=== PATIENT | male | born 1995 | race Caucasian/White ===

== ENCOUNTER 2016-10-07 20:01 | Emergency (ER) ==
--- NOTE | 2016-10-07 21:19 | PROVIDER DOCUMENTATION ---
HPI-Cardiac General <Jerrica Zuluaga - Last Filed: 10/07/16 22:20> - General Source: patient - History of Present Illness-Cardiac Location: reports: central, shoulder Quality of Pain: reports: pressure, tightness Severity in ED: mild Onset/Duration: 2 days ago Timing: still present, intermittent Context/Activities at Onset: reports: none Modifying Factors: improves with: analgesics Palpitation Quality: N/A History of arrythmia: reports: none Recent use of:: reports: no stimulants Nitro Today/Relief: reports: no nitro taken today Aspirin Treatment Today: reports: no aspirin today Prior Chest Pain/Cardiac Workup: reports: no prior chest pain, no prior cardiac workup, non-cardiac Associated Symptoms: reports: denies symptoms Similar Symptoms Previously?: No Recently Seen Here or By Another Healthcare Provider: No <Pawan Resendez - Last Filed: 10/08/16 02:07> - General Chief Complaint: General Adult Stated Complaint: CHEST PAIN,SOB,LFT ARM NUMBNESS Time Seen by Provider: 10/07/16 21:10 Allergies/Adverse Reactions: Patient Allergies Allergy/AdvReac Type Severity Reaction Status Date / Time No Known Allergies Allergy Verified 10/07/16 20:10 Home Medications: Home Medication List Medication Instructions Recorded Confirmed Last Taken Type Ketorolac [Toradol] 10 mg PO Q8H PRN PRN #14 tablet 10/07/16 Unknown Rx Methylprednisolone [Medrol Dosepak] 4 mg PO DIRECTED #1 package 10/07/16 Unknown Rx Tizanidine HCl [Zanaflex] 4 mg PO DAILY 10/07/16 10/07/16 Unknown History - History of Present Illness-Cardiac Nature of Presenting Problem: 21 yom c/o intermittent chest pain that radiates to his left arm and neck that started yesterday. Pt also has some left arm numbness that has been going on for about 2 months off and on. (Pawan Resendez) Review of Systems - Adult - REVIEW OF SYSTEMS - ADULT Constitutional: reports: see HPI. denies: no symptoms reported, chills, fever, fatique, night sweats, weight gain, weight loss, other Eyes: reports: no symptoms reported. denies: see HPI, discharge, dry eyes, decreased vision, blurred vision, double vision, eye pain, redness, other Ears, Nose, Mouth & Throat: reports: no symptoms reported. denies: see HPI, ear discharge, ear pain, hearing loss, tinnitus, epistaxis, sinus problem, nose pain, loose teeth, mouth/dental pain, mouth swelling, hoarseness, throat pain, throat swelling, other Cardiovascular: reports: see HPI, chest pain Respiratory: reports: no symptoms reported. denies: see HPI, chronic cough, cough, dyspnea on exertion, excessive sputum production, hemoptysis, pleurisy, shortness of breath, wheezing, other Gastrointestinal: reports: no symptoms reported. denies: see HPI, abdominal pain, hematemesis, constipation, diarrhea, difficulty swallowing, frequent heartburn, nausea, poor appetite, rectal bleeding, vomiting, other Genitourinary: reports: no symptoms reported. denies: see HPI, dysuria, discharge, frequency, flank pain, frequent UTI's, hematuria, hesitency, incontinence, urinary retention, urgency, other Musculoskeletal: reports: no symptoms reported. denies: see HPI, bone pain, back pain, frequent leg cramps, joint pain, joint swelling, muscle aches, muscle weakness, neck pain, other Integumentary: reports: no symptoms reported. denies: see HPI, hives, hair loss , itching, mole changes, nail changes, rash, skin sores/ulcer, skin thickening, other Neurological: reports: see HPI, numbness (left arm) Psychiatric: reports: anxiety, alcohol/drug dependence. denies: see HPI All Other Systems: Reviewed and Negative <Pawan Resendez - Last Filed: 10/08/16 02:07> Past History - Adult - PAST MEDICAL HISTORY-ADULT Review of Records: reports: Old Records Reviewed, Nursing Assessment Review, Medications Reviewed, Social history reviewed & non-contributory. <Pawan Resendez - Last Filed: 10/08/16 02:07> Physical Exam-General - PHYSICAL EXAM-ADULT Initial Vital Signs Reviewed: Yes - CONSTITUTIONAL General Appearance: appears well, alert, no apparent distress. negative: mild distress, moderate distress, severe distress, cachetic, obese, thin, anxious, lethargic, slow to respond, obtunded, combative, other - EYES Eyes: PERRL/EOMI, pink conjunctivae. negative: fundi clear, no AV nicking, anisocoria, conjuctival exudate, EOM palsy, meningismus, pale conjunctivae, photophobia, sclera injected, scleral icterus, subconjunctival hemorrhage, sunken eyes, other - HEAD, EARS, NOSE, MOUTH & THROAT HENMT: normocephalic/atraumatic, moist mucous membranes, normal ENT inspection, TMs normal, pharynx normal. negative: angioedema, dental decay, hearing deficit , pharyngeal erythema, tonsillar exudate, TM abnormal, TM obscurred by cerumen, frontal tenderness, maxillary tenderness, other - NECK Neck: non-tender, full range of motion, supple, normal inspection. negative: Brudzinski's sign, carotid bruit, C-spine tenderness, limited range of motion, lymphadenopathy, meningismus, trachial deviation, tender lateral, tender midline , thyromegaly, other - RESPIRATORY Respiratory: chest non-tender, lungs clear, normal breath sounds, no pleuratic chest pain, no respiratory distress, no accessory muscle use. negative: respiratory distress, decreased breath sounds, accessory muscle use, crackles, rales, rhonchi, stridor, wheezing, dull on percussion, prolonged expiration, pain on inspiration, plerual rub, retractions, splinting, decreased rate, increased rate, crepitus, other - CARDIOVASCULAR Cardiovascular: normal peripheral pulses, regular rate, rhythm, no edema, no gallop, no JVD, no murmur. negative: JVD, bradycardia, tachycardia, diastolic murmur, systolic murmur, gallop/S3, gallop/S4, extra beats, friction rub, irregularly irregular, PMI displaced laterally, other - CHEST (BREASTS) Chest/Breast: tenderness (very mild tenderness to left chest wall) - GASTROINTESTINAL (ABDOMEN) Abdominal Exam: normal bowel sounds, non tender, soft, no organomegaly, no pulsatile mass. negative: abdominal bruit, abnormal bowel sounds, distended, guarding, rigid, rebound, tenderness, hernia, mass, hepatomegaly, spleenomegaly , McBurney's point tenderness, Becerra's sign, obturator sign, prominent aortic pulsations, psoas, Rovsing's sign, other - GENITOURINARY Male Genitalia: deferred - LYMPHATIC Lymphatic: no adenopathy. negative: axilla node tender, cervical node tenderness, inguinal node tender, enlargement, striations, streaking, other - MUSCULOSKELETAL Back Exam: normal inspection, no CVA tenderness, no vertebral tenderness. negative: CVA tenderness, decreased range of motion, ecchymosis, kyphosis, lordosis, muscle spasm, scoliosis, swelling, vertebral tenderness, other Extremity: normal range of motion, non-tender, normal gait, normal inspection, no pedal edema, no calf tenderness, normal capillary refill. negative: pelvis stable, abnormal NV exam, calf tenderness, deformity, erythema, inflammation, joint effusion, pulse deficit, pedal edema, slow capillary refill, swelling, tenderness, other - SKIN Integumentary: normal color, normal turgor, warm/dry. negative: abrasion(s), blanching, cyanosis, diaphoresis, decubitus, dependent lividity, ecchymosis, embolic lesions, erythema, signs of IVDA, jaundice, laceration(s), mottled, pallor, petechiae, purpura, rash, swelling, tenderness, warm, zoster-like rash, other - NEUROLOGIC Neurologic: grossly normal - PSYCHIATRIC Psych/Mental Status: oriented x 3 <Pawan Resendez - Last Filed: 10/08/16 02:07> Progress - EKG 1 Time of EKG reading by physician:: 21:20 EKG Read and Signed by:: Denton Garcia EKG Interpretation (*Must complete 3 of following elements*): Normal Rate: 64 Rhythm: NSR [place]: normal <Jerrica Zuluaga - Last Filed: 10/07/16 22:20> - XRAY 1 XRAY Study: Chest Impression: Normal (per radiologist) <Pawan Resendez - Last Filed: 10/08/16 02:07> - PLAN OF CARE/RESULTS Progress/Plan/Lab Results: Laboratory Tests 10/07/16 10/07/16 10/07/16 21:22 21:22 21:22 WBC 5.54 RBC 5.07 Hgb 14.9 Hct 42.4 MCV 83.6 MCH 29.4 MCHC 35.1 RDW Std Deviation 11.8 Plt Count 203 MPV 9.7 Immature Gran % (Auto) 0.2 Neut % (Auto) 62.9 Lymph % (Auto) 27.8 [place] % (Auto) 7.2 Eos % (Auto) 1.4 Baso % (Auto) 0.5 Immature Gran # (Auto) 0.01 Neut # (Auto) 3.48 Lymph # (Auto) 1.54 [place] # (Auto) 0.40 Eos # (Auto) 0.08 Baso # (Auto) 0.03 Sodium 136 Potassium 4.1 Chloride 101 Carbon Dioxide 27 Anion Gap 9 BUN 16 Creatinine 0.8 Estimated GFR/1.73 m2 > 60 BUN/Creatinine Ratio 20 Glucose 87 Calculated Osmolality 273 Calcium 9.1 Total Bilirubin 0.50 AST 19 ALT 19 Alkaline Phosphatase 62 Troponin T < 0.010 Total Protein 6.5 Albumin 4.7 Globulin 2.0 Albumin/Globulin Ratio 3.0 Orders Category Date Time Status CHEST-2 VIEWS [RAD] Stat Exams 10/07/16 21:13 Taken CBC WITH ELECTRONIC DIFF [HEME] Stat Lab 10/07/16 21:22 Completed CMP [COMPREHENSIVE METABOLIC PANEL] [CHEM] Stat Lab 10/07/16 21:22 Completed TROPONIN T Stat Lab 10/07/16 21:22 Completed EKG [EKG] Stat Ther 10/07/16 21:13 Draft Vital Signs Temp Pulse Resp BP Pulse Ox 10/07/16 22:30 98.2 F 62 20 91/73 98 10/07/16 21:45 65 20 119/68 97 10/07/16 20:05 98 F 78 18 134/77 100 No Known Allergies Allergy (Verified 10/07/16 20:10) Ketorolac [Toradol] 10 mg PO Q8H PRN PRN #14 tablet 10/07/16 Methylprednisolone [Medrol Dosepak] 4 mg PO DIRECTED #1 package 10/07/16 Tizanidine HCl [Zanaflex] 4 mg PO DAILY 10/07/16 Laboratory 10/07/16 10/07/16 10/07/16 21:22 21:22 21:22 WBC 5.54 RBC 5.07 Hgb 14.9 Hct 42.4 MCV 83.6 MCH 29.4 MCHC 35.1 RDW Std Deviation 11.8 Plt Count 203 MPV 9.7 Immature Gran % (Auto) 0.2 Neut % (Auto) 62.9 Lymph % (Auto) 27.8 [place] % (Auto) 7.2 Eos % (Auto) 1.4 Baso % (Auto) 0.5 Immature Gran # (Auto) 0.01 Neut # (Auto) 3.48 Lymph # (Auto) 1.54 [place] # (Auto) 0.40 Eos # (Auto) 0.08 Baso # (Auto) 0.03 Sodium 136 Potassium 4.1 Chloride 101 Carbon Dioxide 27 Anion Gap 9 BUN 16 Creatinine 0.8 Estimated GFR/1.73 m2 > 60 BUN/Creatinine Ratio 20 Glucose 87 Calculated Osmolality 273 Calcium 9.1 Total Bilirubin 0.50 AST 19 ALT 19 Alkaline Phosphatase 62 Troponin T < 0.010 Total Protein 6.5 Albumin 4.7 Globulin 2.0 Albumin/Globulin Ratio 3.0 (Pawan Resendez) Departure <Jerrica Zuluaga - Last Filed: 10/07/16 22:20> - Departure Time of Disposition Order: 22:24 Certified Medical Emergency: Emergent <Pawan Resendez - Last Filed: 10/08/16 02:07> - Departure DIAGNOSIS: Anxiety, Numbness and tingling in left arm Chest pain Qualifiers: Chest pain type: unspecified Qualified Code(s): R07.9 - Chest pain, unspecified Disposition: HOME 01 Condition: Stable Additional Instructions: ED Follow Up Instructions: You have been treated by a care provider in the Emergency Department. These instructions are being provided to you so you can have an understanding of how to care for yourself upon discharge. Upon discharge from the Emergency Department, you are responsible for making arrangements for follow-up care by a physician of your choice. Take all prescribed medications as directed. Return to the Emergency Department immediately for any new or worsening symptoms. You may call the Physician Referral phone number at [phone] to obtain a list of Physicians who are taking new patients. Prescriptions: Methylprednisolone [Medrol Dosepak] 4 mg PO DIRECTED #1 package Ketorolac [Toradol] 10 mg PO Q8H PRN PRN #14 tablet PRN Reason: Pain Referrals: Leeanna Purcell MD [STAFF PHYSICIAN] - Forms: Return to School/Parent Work Instructions: Nonspecific Chest Pain, Methylprednisolone tablets, Ketorolac tablets Attestation - Physician/ MILANA Attestation Patient care was provided by Advanced Practice Provider:: Yes Advanced Practice Provider:: Pawan Rseendez Advanced Practice Provider documentation review:: The Mid-level provider documentation, treatment plan and medical decision making was reviewed by the physician who agrees with all treatment and medical decision making by the MLP. <Pawan Resendez - Last Filed: 10/08/16 02:07> Physician Attestation
[2016-10-07 21:26] LABS: MANUAL DIFF NEEDED? NO
[2016-10-07 21:28] LABS: BASO% 0.5 % (0.0-0.8); EOS# 0.08 X1000 (0.0-0.7); EOS% 1.4 % (0.0-10.0); HEMATOCRIT 42.4 % (42.0-52.0); HEMOGLOBIN 14.9 g/dL (14.0-18.0); IMM GRAN# 0.01 X1000 (0.0-0.04); IMM GRAN% 0.2 % (0.0-0.5); LYMPH# 1.54 X1000 (1.2-3.4); LYMPH% 27.8 % (20.5-51.1); MCH 29.4 PG (27-31); MCHC 35.1 g/dL (33-37); MCV 83.6 FL (81-99); MONO% 7.2 % (1.7-9.3); MPV 9.7 FL (7.4-10.4); NEUT% 62.9 % (42.2-75.2); PLT 203 X1000 (130-400); RBC 5.07 XMIL (4.7-6.1)
--- NOTE | 2016-10-07 21:29 | EKG Report ---
Test Performed on : 10/07/2016 9:20:33 PM Test Reason : CP Blood Pressure : / mmHG Vent. Rate : 064 BPM Atrial Rate : 064 BPM P-R Int : 134 ms QRS Dur : 088 ms QT Int : 396 ms P-R-T Axes : 013 062 045 degrees QTc Int : 408 ms Normal sinus rhythm. Normal ECG No previous ECGs available Unconfirmed Result
[2016-10-07 21:50] LABS: AGAP 9; ALBUMIN 4.7 g/dL (3.5-5.0); ALKALINE PHOSPHATASE 62 U/L (32-122); BUN 16 mg/dL (8-22); CALCIUM 9.1 mg/dL (8.8-10.2); CHLORIDE 101 mmol/L (98-107); COSMO 273; GOT 19 U/L (10-34); GPT 19 U/L (10-44); POTASSIUM 4.1 mmol/L (3.5-5.1); SODIUM 136 mmol/L (136-145); TCO2 27 mmol/L (25-35); TOTAL PROTEIN 6.5 g/dL (6.3-8.3)
[2016-10-07 22:35] VITALS: BP 91/73
--- NOTE | 2016-10-08 08:43 | Diag Imaging Result Document ---
PROCEDURE NAME: CHEST-2 VIEWS - 10/07/2016 CHEST, 2 VIEWS: COMPARISON: No comparison exam. FINDINGS: Heart size is normal. The lungs appear clear. There is no pleural effusion or pneumothorax seen. IMPRESSION: No evidence of acute disease.
== END 2016-10-07 22:43 | disposition home or self-care (01) ==
LOC: P.ED 20:01
DX: R07.89 Other chest pain (principal); R20.0 Anesthesia of skin; R20.2 Paresthesia of skin; F41.9 Anxiety disorder, unspecified; M25.512 Pain in left shoulder; M79.602 Pain in left arm; M54.2 Cervicalgia; R06.02 Shortness of breath
CPT/HCPCS: 71020; 80053; 84484; 85025; 93005; 99283